=== PATIENT | female | born 1960 | race African-American/Black ===

== ENCOUNTER 2018-03-30 13:42 | Observation (INO) ==
[2018-03-30] MEDS ORDERED: Morphine Inj 4 MG/ML Vial IV.PUSH ONE (14:15)
[2018-03-30 14:29] LABS: Baso # (Auto) 0.2 th/mm3 (0.0-0.2); Baso % (Auto) 3.7 % (0.0-2.0); Eos # (Auto) 0.1 th/mm3 (0.0-0.4); Hemoglobin 11.7 gm/dL (11.6-15.3); Lymph % (Auto) 34.9 % (9.0-44.0); Mean Corpuscular HGB Conc 31.6 % (32.0-36.0); Mean Corpuscular Hemoglobin 25.6 pg (27.0-34.0); Mean Corpuscular Volume 81.1 fL (80.0-100.0); Mean Platelet Volume 8.4 fL (7.0-11.0); Mono # (Auto) 0.2 th/mm3 (0.0-0.9); Mono % (Auto) 4.2 % (0.0-8.0); Neut # (Auto) 3.2 th/mm3 (1.8-7.7); Neut % (Auto) 55.2 % (16.0-70.0); Platelet Count 315 th/mm3 (150-450); Red Blood Count 4.57 mil/mm3 (4.00-5.30); Red Cell Distribution Width 12.8 % (11.6-17.2); White Blood Count 5.7 th/mm3 (4.0-11.0)
[2018-03-30 14:36] LABS: Chloride 102 meq/L (98-107); Potassium 4.3 meq/L (3.5-5.1); Sodium 138 meq/L (136-145)
[2018-03-30 14:39] LABS: Calcium 9.2 mg/dL (8.5-10.1)
--- NOTE | 2018-03-30 14:39 | ED ---
HPI General Chief Complaint: Chest Pain Stated Complaint: sob-sent by urgent care Time Seen by Provider: 03/30/18 14:13 Source: patient Mode of arrival: ambulatory Limitations: no limitations History of Present Illness MD complaint: Reports chest pain STEMI Alert: No Onset (ago): day(s) (3) Duration: constant and other (worse since yesterday) Pain location: Reports substernal Severity scale (1-10): 7 Quality: Reports aching Pain radiation: Reports LUE Relieving factors: medication-other (aspirin gave mild relief) Exacerbating factors: exertion Associated symptoms: Reports dyspnea ([place]) and other (no diaphoresis); Denies nausea, vomiting and diaphoresis Treatments prior to arrival chest pain: Reports aspirin Related Data Home Medications Medication Instructions Recorded Confirmed Bp Med 03/30/18 albuterol sulfate 1.25 mg INHALATION QID PRN MDD 4 03/30/18 03/30/18 insulin glargine [Lantus U-100 40 unit SUBCUT BID 03/30/18 03/30/18 Insulin] insulin lispro [Humalog U-100 1 sliding scale dose SUBCUT UD 03/30/18 03/30/18 Insulin] Allergies Allergy/AdvReac Type Severity Reaction Status Date / Time No Known Allergies Allergy Verified 03/30/18 14:03 Review of Systems ROS: all other systems reviewed are negative Neurologic Reports other [facility] Medical History Medical History Hx of diabetes mellitus (Acute) Hx of hemorrhoids (Acute) Hx of primary hypertension (Acute) Social History Social History Substance History: No History of Abuse Second Hand Smoke Exposure: No Smoking Status: Never smoker How Often Do You Have a Drink Containing Alcohol: Never Recent Travel in [facility] within the Last 8 Weeks: Yes Recent Out of Country Travel within the Last 8 Weeks: No Immunization History Tetanus Immunization: Unsure Exam Const General: cooperative, healthy appearing and comfortable Orientation: alert, awake and oriented x3 HENMT Head: normal to inspection, normocephalic and atraumatic Eyes General: appearance normal, both eyes and all related structures Conjunctivae: conjunctivae normal Sclera: sclerae normal EOM: EOM intact bilaterally Neck Neck: normal visual inspection and full ROM Chest Chest: normal inspection of the chest and tenderness Resp Effort & Inspection: normal respiratory effort and able to speak in complete sentences Auscultation: clear to auscultation bilaterally Cardio Rate: regular rate Rhythm: regular rhythm Heart Sounds: S1 normal and S2 normal GI Inspection: normal to inspection Palpation: soft Back/Spine/Pelvis Cervical Spine: cervical ROM normal Thoracic/Lumbar Spine: thoraco-lumbar ROM normal Skin General: no rashes or lesions noted, turgor normal and dry skin Neuro General: alert, awake, oriented x3, moves all extremities and CN's II-XI intact bilaterally Extrem General: normal to inspection, full ROM and no pedal edema Psych Appearance: grossly normal Mental Status: mental status grossly normal Speech and Movement: speech and movement normal Mood: congruent mood Affect: normal affect Attitude: cooperative Thought Process: normal Thought Content: normal Judgment: judgment good Course Initial Documented Vital Signs Temperature 98 F 03/30/18 14:03 Pulse Rate 80 03/30/18 14:03 Respiratory Rate 18 03/30/18 14:03 Blood Pressure 164/80 H 03/30/18 14:03 Pulse Oximetry 100 03/30/18 14:03 Last Documented Vital Signs Temperature 98 F 03/30/18 14:03 Pulse Rate 72 03/30/18 14:58 Respiratory Rate 16 03/30/18 14:58 Blood Pressure 184/101 H 03/30/18 14:58 Pulse Oximetry 100 03/30/18 14:58 Medical Decision Making [facility] Narrative Medical decision making narrative: This patient presents with a 3-day history of chest pain which has been worse since yesterday. Her risk factors include hypertension and diabetes. Her initial EKG does not show a STEMI. She does have anterior chest wall tenderness. My plan will be to do an initial cardiac evaluation. If it is negative, she needs to be admitted to the chest pain center for rule out. She does have risk factors for CAD. Initial evaluation is negative. She is being admitted to observation/chest pain center. Medical Screen Exam Complete: Yes Emergency Medical Condition: Yes Differential Diagnosis Differential Diagnosis: Differential diagnosis of chest pain includes but is not limited to musculoskeletal pain, pulmonary embolism, acute coronary syndrome , pneumonia, pleurisy Lab Data Lab results reviewed: Yes I reviewed the patient's lab results. Result diagrams: 03/30/18 14:18 03/30/18 14:18 Lab Results 03/30/18 03/30/18 Range/Units 14:18 14:18 CBC w Diff Auto diff final WBC 5.7 (4.0-11.0) th/mm3 RBC 4.57 (4.00-5.30) mil/mm3 Hgb 11.7 (11.6-15.3) gm/dL Hct 37.0 (35.0-46.0) % MCV 81.1 (80.0-100.0) fL MCH 25.6 L (27.0-34.0) pg MCHC 31.6 L (32.0-36.0) % RDW 12.8 (11.6-17.2) % Plt Count 315 (150-450) th/mm3 MPV 8.4 (7.0-11.0) fL Neut % (Auto) 55.2 (16.0-70.0) % Lymph % (Auto) 34.9 (9.0-44.0) % [place] % (Auto) 4.2 (0.0-8.0) % Eos % (Auto) 2.0 (0.0-4.0) % Baso % (Auto) 3.7 H (0.0-2.0) % Neut # (Auto) 3.2 (1.8-7.7) th/mm3 Lymph # (Auto) 2.0 (1.0-4.8) th/mm3 [place] # (Auto) 0.2 (0.0-0.9) th/mm3 Eos # (Auto) 0.1 (0.0-0.4) th/mm3 Baso # (Auto) 0.2 (0.0-0.2) th/mm3 WBC Differential . Differential Comment . Sodium 138 (136-145) meq/L Potassium 4.3 (3.5-5.1) meq/L Chloride 102 (98-107) meq/L Carbon Dioxide 28.8 (21.0-32.0) meq/L Anion Gap 7 (5-15) meq/L BUN 16 (7-18) mg/dL Creatinine 1.40 H (0.50-1.00) mg/dL Estimated GFR 38 L (>89) mL/min Random Glucose 222 H (74-106) mg/dL Calcium 9.2 (8.5-10.1) mg/dL Total Bilirubin 0.4 (0.2-1.0) mg/dL AST 16 (15-37) U/L ALT 26 (10-53) U/L Alkaline Phosphatase 77 (45-117) U/L Troponin I Less than 0.02 L (0.02-0.05) ng/mL Total Protein 7.9 (6.4-8.2) g/dL Albumin 4.0 (3.4-5.0) g/dL ECG Data EKG Prior to Arrival: No Attestation: I personally reviewed and interpreted this ECG as follows: (EKG shows a sinus rhythm with a rate of 78. No acute STT wave changes. Very minor J-point elevation in V2) Discharge Plan Discharge Disposition Patient Disposition: 30 Still Patient Discharge Details Diagnosis: Chest pain Physicians Team ED Provider: Leatha Dunham Primary Care Provider: Primary Care Vani Loo Rxs /Orders / Referrals /Forms Prescriptions: No Action insulin glargine [Lantus U-100 Insulin] 100 unit/mL Solution 40 unit SUBCUT BID RF: 0 insulin lispro [Humalog U-100 Insulin] 100 unit/mL Solution 1 sliding scale dose SUBCUT UD RF: 0 Bp Med RF: 0 albuterol sulfate 1.25 mg/3 mL Solution For Nebulization 1.25 mg INHALATION QID MDD 4 PRN (Reason: Shortness Of Breath Or Wheezing) RF : 0 Discharge Instructions Patient Printed Instructions: Chest Pain (ED) Status ED Status: With Doctor
[2018-03-30 14:40] LABS: Anion Gap 7 meq/L (5-15); Blood Urea Nitrogen 16 mg/dL (7-18); Carbon Dioxide 28.8 meq/L (21.0-32.0); Glucose,Random 222 mg/dL (74-106)
[2018-03-30 14:43] LABS: Alanine Aminotransferase 26 U/L (10-53); Aspartate Aminotransferase 16 U/L (15-37); Glomerular Filtration Rate 38 mL/min (>89)
[2018-03-30 14:45] LABS: Total Protein 7.9 g/dL (6.4-8.2)
[2018-03-30 14:46] LABS: Alkaline Phosphatase 77 U/L (45-117)
[2018-03-30] MEDS ORDERED: Acetaminophen 500 MG Tablet PO PRN (15:37)
--- NOTE | 2018-03-30 16:18 | XR ---
EXAM DATE: 03/30/2018 4:05 PM EST AGE/SEX: 58 years / Female INDICATIONS: Cough, short of breath, chest pains CLINICAL DATA: This is the patient's initial encounter. Patient reports that signs and symptoms have been present for 4 - 6 days and indicates a pain score of 7/10. MEDICAL/SURGICAL HISTORY: Diabetes mellitus type II. Angioplasty. COMPARISON: No prior exams available for comparison. FINDINGS: A single AP view of the chest demonstrates the lungs to be symmetrically aerated without evidence of mass, infiltrate or effusion. The cardiomediastinal contours are unremarkable. Osseous structures a re intact. CONCLUSION: No active disease. Electronically signed by: Juan F Rosado MD 03/30/2018 4:17 PM EST
[2018-03-30] MEDS ORDERED: Dextrose 50% in Water 50 ML Vial IV.PUSH PRN (16:28)
--- NOTE | 2018-03-30 16:30 | P.HP ---
History of Present Illness Primary Care Physician: No Primary Care Physician Chief Complaint: Chest pain History of Present Illness: 58-year-old female with known history of hypertension, diabetes, diabetic neuropathy who presented to the hospital for evaluation of chest pain. Patient indicates for the last 3 days she has had a constant chest pain on the left side of her chest. The pain does go into her left side of her neck, left arm. She denies any diaphoresis, nausea, vomiting, shortness of breath, dyspnea. The pain has not gotten any better so she came to emergency department for evaluation. Patient states that it was an 8/10 on a pain scale, it was not relieved with aspirin, morphine, nitroglycerin. Patient does have increased risk factors and is recommended by the ER physician that the patient be observed in the chest pain center. Upon evaluating patient she still has the persistent chest discomfort which is reproducible on palpation over the left sternal border. Patient indicates that this reproducible pain is the same pain she has been experiencing for the last 3 days. - Diagnosis (1) Chest pain (2) Azotemia Review of Systems All other systems reviewed negative except as stated in HPI Cardiovascular: Reports chest pain, Reports radiating jaw, neck or arm pain PMFSH - History History Provided By: Patient - Medical History Medical History: Medical History (Last Updated 03/30/18 @ 17:12 by BRITTANY Duffy) Hx of diabetes mellitus Hx of hemorrhoids Hx of primary hypertension Peripheral neuropathy - Surgical History Surgical History: Surgical History (Last Updated 03/30/18 @ 17:12 by BRITTANY Duffy) History of hemorrhoidectomy - Family History Family History: Family History (Last Updated 03/30/18 @ 17:12 by BRITTANY Duffy) Father Family history of prostate cancer - Tobacco History Second Hand Smoke Exposure: No Smoking Status: Never smoker - Alcohol History How Often Do You Have a Drink Containing Alcohol: Never - Substance Use History Substance History: No History of Abuse - Travel History Recent Travel in the [place] Within the Last 8 Weeks: Yes Recent Travel Out of the Country Within the Last 8 Weeks: No - Immunization History Tetanus Immunization: Unsure Medications and Allergies Active Medications: Active Medications Acetaminophen (Tylenol) 500 mg PO Q4H PRN PRN Reason: Headache, fever, pain 1-4 Nitroglycerin (Nitrostat Sl) 0.4 mg SL Q5M PRN PRN Reason: CHEST PAIN Ondansetron HCl (Zofran Inj) 4 mg IV.PUSH Q6H PRN PRN Reason: NAUSEA Sodium Chloride (Ns Flush) 2 ml IV.FLUSH UNSCH PRN PRN Reason: FLUSH AFTER USING IV ACCESS Sodium Chloride (Ns Flush) 2 ml IV.FLUSH BID BLAN[place] Sodium Chloride (Ns Flush) 2 ml IV.FLUSH PRN PRN PRN Reason: FLUSH AFTER USING IV ACCESS Allergies Allergy/AdvReac Type Severity Reaction Status Date / Time No Known Allergies Allergy Verified 03/30/18 14:03 Home Medications Medication Instructions Recorded Confirmed Type Bp Med 03/30/18 History albuterol sulfate 1.25 mg INHALATION QID PRN MDD 4 03/30/18 03/30/18 History insulin glargine [Lantus U-100 40 unit SUBCUT BID 03/30/18 03/30/18 History Insulin] insulin lispro [Humalog U-100 1 sliding scale dose SUBCUT UD 03/30/18 03/30/18 History Insulin] Exam Vital signs: Vital Signs 03/30/18 14:03 03/30/18 14:15 03/30/18 14:58 Temperature 98 F Pulse Rate 80 72 Respiratory Rate 18 16 Blood Pressure 164/80 H 184/101 H Pulse Oximetry 100 99 100 03/30/18 16:18 Temperature Pulse Rate 65 Respiratory Rate 16 Blood Pressure 152/67 H Pulse Oximetry 100 Intake & Output 03/29/18 03/30/18 03/30/18 18:59 06:59 18:59 Weight 83.8 kg Narrative: GENERAL: Well-developed, well-nourished, in no acute distress. alert and orientated HEENT: Head is normocephalic without any lesions or masses noted. Facial features are symmetric. Eyes: Pupils equal round reactive to light. Extraocular muscles are intact. Conjunctivae were clear. Oropharyngeal: Pharynx without any erythema edema. Tongue is midline without deviation. Buccal mucosa is moist without any masses or lesions NECK: Supple without any masses. Trachea midline no deviation. No JVD, no bruits are appreciated CARDIAC: Regular rhythm, regular rate. S1/S2 are heard. No murmurs gallops or rubs. LUNGS: Clear to auscultation bilaterally. No wheeze, rhonchi or rales. No use of accessory muscles on inspiration or expiration. ABDOMEN: Soft, nontender. Nondistended. Bowel sounds heard in all 4 quadrants. No organomegaly or masses. Negative rebound, negative guarding EXTREMITIES: No edema, pulses are equal bilaterally. No cyanosis or clubbing NEUROLOGY: Mood and affect appear appropriate. Cranial nerves II through XII grossly intact. Muscle strength 5/5 in upper and lower extremities bilaterally. Deep tendon reflexes are 2+ in upper and lower extremities bilaterally. Results - Labs CBC & Chem 7: 03/30/18 14:18 03/30/18 14:18 Labs: Laboratory Results - last 24 hr 03/30/18 03/30/18 14:18 14:18 CBC w Diff Auto diff final WBC 5.7 RBC 4.57 Hgb 11.7 Hct 37.0 MCV 81.1 MCH 25.6 L MCHC 31.6 L RDW 12.8 Plt Count 315 MPV 8.4 Neut % (Auto) 55.2 Lymph % (Auto) 34.9 [place] % (Auto) 4.2 Eos % (Auto) 2.0 Baso % (Auto) 3.7 H Neut # (Auto) 3.2 Lymph # (Auto) 2.0 [place] # (Auto) 0.2 Eos # (Auto) 0.1 Baso # (Auto) 0.2 WBC Differential . Differential Comment . Sodium 138 Potassium 4.3 Chloride 102 Carbon Dioxide 28.8 Anion Gap 7 BUN 16 Creatinine 1.40 H Estimated GFR 38 L Random Glucose 222 H Calcium 9.2 Total Bilirubin 0.4 AST 16 ALT 26 Alkaline Phosphatase 77 Troponin I Less than 0.02 L Total Protein 7.9 Albumin 4.0 - Imaging Impressions Chest X-Ray 03/30/18 14:15 CONCLUSION: No active disease. Caprini VTE Risk Assessment Caprini VTE Risk Assessment: No/Low Risk (score <= 1) Caprini Risk Assessment Model: Point Value = 1 Point Value = 2 Point Value = 3 Point Value = 5 Age 41-60 Minor surgery BMI > 25 kg/m2 Swollen legs Varicose veins or History of unexplained or recurrent spontaneous Oral contraceptives or hormone replacement Sepsis (< 1 month) Serious lung disease, including pneumonia (< 1 month) Abnormal pulmonary function Acute myocardial infarction Congestive heart failure (< 1 month) History of inflammatory bowel disease Medical patient at bed rest Age 61-74 Arthroscopic surgery Major open surgery (> 45 min) Laparoscopic surgery (> 45 min) Malignancy Confined to bed (> 72 hours) Immobilizing plaster cast Central venous access Age >= 75 History of VTE Family history of VTE Factor V Leiden Prothrombin [id number] Lupus anticoagulant Anticardiolipin antibodies Elevated serum homocysteine Heparin-induced thrombocytopenia Other congenital or acquired thrombophilia Stroke (< 1 month) Elective arthroplasty Hip, pelvis, or leg fracture Acute spinal cord injury (< 1 month) Prophylaxis Regimen: Total Risk Factor Score Risk Level Prophylaxis Regimen 0-1 Low Early ambulation 2 Moderate Order ONE of the following: *Sequential Compression Device (SCD) *Heparin 5000 units SQ BID 3-4 Higher Order ONE of the following medications: *Heparin 5000 units SQ TID *Enoxaparin/Lovenox 40 mg SQ daily (WT < 150 kg, CrCl > 30 mL/min) *Enoxaparin/Lovenox 30 mg SQ daily (WT < 150 kg, CrCl > 10-29 mL/min) *Enoxaparin/Lovenox 30 mg SQ BID (WT < 150 kg, CrCl > 30 mL/min) AND/OR *Sequential Compression Device (SCD) 5 or more Highest Order ONE of the following medications: *Heparin 5000 units SQ TID (Preferred with Epidurals) *Enoxaparin/Lovenox 40 mg SQ daily (WT < 150 kg, CrCl > 30 mL/min) *Enoxaparin/Lovenox 30 mg SQ daily (WT < 150 kg, CrCl > 10-29 mL/min) *Enoxaparin/Lovenox 30 mg SQ BID (WT < 150 kg, CrCl > 30 mL/min) AND *Sequential Compression Device (SCD) Assessment and Plan - Assessment (1) Chest pain Code(s): R07.9 - Chest pain, unspecified Status: Acute (2) Azotemia Code(s): R79.89 - Other specified abnormal findings of blood chemistry Status : Acute - Plan Chest pain -Patient with increased risk factors include hypertension, diabetes -Patient will be ruled out for acute coronary event with serial cardiac enzymes -Initial EKG was reviewed by myself that shows sinus rhythm. We will continue to evaluate serial EKGs -If patient ruled out for acute coronary event will anticipate performing myocardial perfusion study to evaluate for any underlying ischemia -Continue aspirin, nitroglycerin as needed, oxygen as needed -Continue monitor telemetry, Diabetes -Accu-Cheks with sliding scale insulin Hypertension -Nursing staff to obtain accurate medication list -Vasotec as needed Azotemia -Unknown whether acute versus chronic -Continue IV fluids -Monitor renal function DVT prevention -Sequential compression devices (1) Chest pain Qualifiers: Chest pain type: unspecified Qualified Code(s): R07.9 - Chest pain, unspecified
[2018-03-30 16:45] LABS: Creatine Kinase 108 U/L (26-192)
[2018-03-30] MEDS: Insulin NovoLOG Aspart Correctional Sugar Inj SQ SCH ×2 (18:45→21:07)
[2018-03-30] MEDS: Sod Chloride 0.9% Inj 1,000 ML IV.CONT SCH ×2 (18:45→21:08)
[2018-03-30 20:03] LABS: Creatine Kinase 98 U/L (26-192)
[2018-03-31 05:54] LABS: Potassium 4.1 meq/L (3.5-5.1)
[2018-03-31 05:57] LABS: Calcium 8.4 mg/dL (8.5-10.1)
[2018-03-31] MEDS: Sod Chloride 0.9% Inj 1,000 ML IV.CONT SCH (06:55)
--- NOTE | 2018-03-31 07:59 | P.PNIM ---
Subjective Interval history: Patient seen and examined today for follow-up on chest pain. Patient states that she still experiencing the same chest pain which has been continuous with a 5/10 on a pain scale. Patient denies any new complaints. Vital signs are stable. Patient remains afebrile. Physical Exam Vital signs: Vital Signs 03/30/18 14:03 03/30/18 14:15 03/30/18 14:58 Temperature 98 F Pulse Rate 80 72 Respiratory Rate 18 16 Blood Pressure 164/80 H 184/101 H Pulse Oximetry 100 99 100 03/30/18 16:18 03/30/18 20:00 03/30/18 20:50 Temperature 96.5 F L Pulse Rate 65 73 Respiratory Rate 16 18 Blood Pressure 152/67 H 147/70 H Pulse Oximetry 100 96 100 03/31/18 00:00 03/31/18 04:00 03/31/18 07:49 Temperature 97.5 F L 96.5 F L Pulse Rate 63 62 Respiratory Rate 18 18 Blood Pressure 131/67 145/88 H Pulse Oximetry 94 L 94 L 93 L Intake & Output 03/30/18 03/31/18 03/31/18 18:59 06:59 18:59 Intake Total 965 / 965 Output Total 300 / 300 Balance 665 / 665 Weight 83.8 kg 83.4 kg Intake: IV 965 / 965 NS Inj 1,000 ML @ 100 mls/hr IV 965 / 965 .CONT .Q10H BLANCA Rx#:[id number] Oral 0 / 0 Output: Urine 300 / 300 Narrative: GENERAL: Well-developed, well-nourished, in no acute distress. alert and orientated HEENT: Head is normocephalic without any lesions or masses noted. Facial features are symmetric. Eyes: Extraocular muscles are intact. Conjunctivae were clear. NECK: Supple without any masses. Trachea midline no deviation. No JVD CARDIAC: Regular rhythm, regular rate. S1/S2 are heard. No murmurs gallops or rubs. Patient has reproducible palpable tenderness over the chest wall at the site of her chest discomfort. LUNGS: Clear to auscultation bilaterally. No wheeze, rhonchi or rales. No use of accessory muscles on inspiration or expiration. ABDOMEN: Soft, nontender. Nondistended. Bowel sounds heard in all 4 quadrants. No organomegaly or masses. Negative rebound, negative guarding EXTREMITIES: No edema, pulses are equal bilaterally. No cyanosis or clubbing NEUROLOGY: Mood and affect appear appropriate. Cranial nerves II through XII grossly intact. Moving all extremities, speech is clear Results - Labs CBC & Chem 7: 03/30/18 14:18 03/31/18 04:55 Laboratory Results - last 24 hr 03/30/18 03/30/18 03/30/18 14:18 14:18 16:10 CBC w Diff Auto diff final WBC 5.7 RBC 4.57 Hgb 11.7 Hct 37.0 MCV 81.1 MCH 25.6 L MCHC 31.6 L RDW 12.8 Plt Count 315 MPV 8.4 Neut % (Auto) 55.2 Lymph % (Auto) 34.9 [place] % (Auto) 4.2 Eos % (Auto) 2.0 Baso % (Auto) 3.7 H Neut # (Auto) 3.2 Lymph # (Auto) 2.0 [place] # (Auto) 0.2 Eos # (Auto) 0.1 Baso # (Auto) 0.2 WBC Differential . Differential Comment . Sodium 138 Potassium 4.3 Chloride 102 Carbon Dioxide 28.8 Anion Gap 7 BUN 16 Creatinine 1.40 H Estimated GFR 38 L POC Glucose Random Glucose 222 H Calcium 9.2 Total Bilirubin 0.4 AST 16 ALT 26 Alkaline Phosphatase 77 Total Creatine Kinase 108 Troponin I Less than 0.02 L Less than 0.02 L Total Protein 7.9 Albumin 4.0 03/30/18 03/30/18 03/31/18 19:05 20:19 04:55 CBC w Diff WBC RBC Hgb Hct MCV MCH MCHC RDW Plt Count MPV Neut % (Auto) Lymph % (Auto) [place] % (Auto) Eos % (Auto) Baso % (Auto) Neut # (Auto) Lymph # (Auto) [place] # (Auto) Eos # (Auto) Baso # (Auto) WBC Differential Differential Comment Sodium 139 Potassium 4.1 Chloride 105 Carbon Dioxide 27.0 Anion Gap 7 BUN 19 H Creatinine 1.20 H Estimated GFR 56 L POC Glucose 244 H Random Glucose 200 H Calcium 8.4 L D Total Bilirubin AST ALT Alkaline Phosphatase Total Creatine Kinase 98 Troponin I Less than 0.02 L Total Protein Albumin 03/31/18 07:27 CBC w Diff WBC RBC Hgb Hct MCV MCH MCHC RDW Plt Count MPV Neut % (Auto) Lymph % (Auto) [place] % (Auto) Eos % (Auto) Baso % (Auto) Neut # (Auto) Lymph # (Auto) [place] # (Auto) Eos # (Auto) Baso # (Auto) WBC Differential Differential Comment Sodium Potassium Chloride Carbon Dioxide Anion Gap BUN Creatinine Estimated GFR POC Glucose 208 H Random Glucose Calcium Total Bilirubin AST ALT Alkaline Phosphatase Total Creatine Kinase Troponin I Total Protein Albumin - Imaging Impressions Chest X-Ray 03/30/18 14:15 CONCLUSION: No active disease. Assessment and Plan - Assessment (1) Chest pain Code(s): R07.9 - Chest pain, unspecified Status: Acute (2) Azotemia Code(s): R79.89 - Other specified abnormal findings of blood chemistry Status : Acute - Plan Chest pain -Patient with increased risk factors include hypertension, diabetes -Patient has been ruled out for acute coronary event with serial cardiac enzymes are negative -Serial EKGs were reviewed by myself shows sinus rhythm without any changes -Myocardial perfusion study was performed and indicated small area of stress- induced ischemia in the anterior myocardium with low risk, ejection fraction greater than 70% -Discussed with cardiology who indicated that there is a very small area of ischemia, that the patient's presenting symptoms and reproducible palpable tenderness do not indicate true cardiac etiology. Recommending close follow-up -continue aspirin, nitroglycerin as needed, oxygen as needed -Continue monitor telemetry, -We will continue home medication amlodipine at discharge -will also recommend aspirin 81 mg daily and Coreg 3.125 mg twice daily Diabetes -Accu-Cheks with sliding scale insulin Hypertension -I called the [facility] pharmacy and the patient is on amlodipine 10 mg daily and atorvastatin 20 mg daily -Vasotec as needed Azotemia -Unknown whether acute versus chronic -Continue IV fluids -Monitor renal function DVT prevention -Sequential compression devices Discharge Planning: Discharge home in stable condition Activity: Ad niharika. Diet: Diabetic diet Medication per medication reconciliation Follow-up with primary medical doctor in 1 week (1) Chest pain Qualifiers: Chest pain type: unspecified Qualified Code(s): R07.9 - Chest pain, unspecified
[2018-03-31] MEDS: Insulin NovoLOG Aspart Correctional Sugar Inj SQ SCH (08:37)
[2018-03-31] MEDS ORDERED: Regadenoson Inj 0.4 MG/5 ML Syringe IV.PUSH ONE (10:22)
--- NOTE | 2018-03-31 11:37 | NM ---
EXAM DATE: 03/31/2018 11:30 AM EST AGE/SEX: 58 years / Female INDICATIONS:Angina. . Chest pain. CLINICAL DATA: This is the patient's initial encounter. Patient reports that signs and symptoms have been present for 1 day and indicates a pain score of 5/10. MEDICAL/SURGICAL HISTORY: Diabetes mellitus type II. Hypertension. . Hemorrhoidectomy. COMPARISON: No prior exams available for comparison. DOSE: 8.1 mCi Tc 99m Myoview at rest 26.5 mCi [id number] at stress 0.4 mg Lexiscan STRESS SYMPTOMS: None. EJECTION FRACTION: >70 % TECHNIQUE: The patient underwent pharmacologic stress with infusion of prescribed dose. Continuous ECG tracing was monitored during stress. Gated SPECT imaging was performed after stress and conventi onal SPECT imaging was performed at rest. The examination was performed on a SPECT/CT scanner, both attenuation and non-corrected datasets were reviewed. FINDINGS: Distribution: There is a small segment of reperfusion in the anterior myocardium beginning in the mid ventricle extending to the apex.. Perfusion Study: The pattern of perfusion at stress is within normal limits. Gated Study: There are intact wall motion and wall thickening without hypokinetic or dyskinetic segm ents. The ejection fraction is calculated at >70%. RISK CATEGORY: Low (<1% Annual Motality Rate) CONCLUSION: 1. Small area of stress-induced ischemia anterior myocardium Electronically signed by: Tobias Castaneda MD 03/31/2018 11:36 AM EST
--- NOTE | 2018-03-31 12:01 | ECG ---
Date Performed: 03/30/2018 Time Performed: 19:01:59 PTAGE: 58 years EKG: Sinus rhythm NORMAL ECG Since the PREVIOUS TRACING , no significant change noted PREVIOUS TRACIN03/30/2018 15.50 DOCTOR: Juan Alberto Burk Interpretating Date/Time 03/31/2018 11:59:49
--- NOTE | 2018-03-31 12:06 | ECG ---
Date Performed: 03/30/2018 Time Performed: 14:22:02 PTAGE: 58 years EKG: Sinus rhythm NORMAL ECG NO PREVIOUS TRACING DOCTOR: Juan Alberto Burk Interpretating Date/Time 03/31/2018 12:03:03
--- NOTE | 2018-04-01 07:18 | TR ---
Date Performed: 03/31/2018 Time Performed: 10:45:30 DOCTOR: Ember Zamora DRUG LIST: CLINICAL HISTORY: REASON FOR TEST: REASON FOR ENDING: OBSERVATION: CONCLUSION: Lexiscan stress test was performed under standard four minute protocol. Radionuclid e was injected one minute prior to ending the test. No electrocardiographic abormalities were present to suggest ischemia. Nuclear imaging and interpretation are pending. COMMENTS: Lexiscan stress test was performed under standard four minute protocol. Radionuclide was injected one minute prior to ending the test. No electrocardiographic abormalities were present t o suggest ischemia. Nuclear imaging and interpretation are pending.
== END 2018-03-31 16:13 | disposition home or self-care (01) ==
LOC: PHED 13:42 → PHEDA 13:42 → PH3 17:07
PROVIDERS: ADMIT Hospitalist; ATTEND Hospitalist